=== PATIENT | female | born 1965 | race Caucasian/White ===

== ENCOUNTER 2019-11-12 07:06 | Observation (INO) | payer OTHER ==
[2019-11-11 09:10] LABS: BASOPHILS % (AUTO) 0.9 % (0.0-5.0); EOSINOPHILS % (AUTO) 2.2 % (0.0-8.0); HEMATOCRIT 43.1 % (36-48); LYMPHOCYTES % (AUTO) 27.2 % (21.0-51.0); MEAN CORPUSCULAR HEMOGLOBIN 28.4 pg (27.0-33.0); MEAN CORPUSCULAR HGB CONC 32.7 g/dL (32.0-36.0); MEAN CORPUSCULAR VOLUME 86.9 fL (79-99); MONOCYTES % (AUTO) 5.7 % (3.0-13.0); NEUTROPHILS % (AUTO) 63.6 % (40.0-77.0); PLATELET COUNT (AUTO) 294 K/uL (130-400); RED BLOOD CELL COUNT(AUTO) 4.96 MIL/uL (4.00-5.50); RED CELL DISTRIBUTION WIDTH 13.1 % (11.0-15.5); WHITE BLOOD COUNT (AUTO) 7.8 K/uL (4.8-10.8)
[2019-11-11 09:24] LABS: CREATININE 0.8 mg/dL (0.5-1.5); POTASSIUM 4.2 mmol/L (3.5-5.1)
[2019-11-11 09:27] LABS: INR 0.92 (0.85-1.15); PARTIAL THROMBOPLASTIN TIME 28.8 SEC (26.3-35.5)
[2019-11-11 17:41] VITALS: BP 138/75
[~2019-11-12] VITALS: Ht 167.6 cm; Wt 98.2 kg
[2019-11-12] VITALS (29 sets, daily range): BP systolic 110–170; BP diastolic 60–80
[~2019-11-12 07:06] MED LIST: METH10TA7 PO; PROP60TA20 PO; SERTRALINE PO
[2019-11-12] MEDS ORDERED: LACTATED RINGERS 1000ML 1,000 ML IV ONE (07:44)
[2019-11-12] MEDS ORDERED: GABA600T10 PO (07:56)
[2019-11-12] MEDS ORDERED: LIDOCAINE 1%-EPI 1:100,000 20 ML VIAL IJ ONE (08:44)
[2019-11-12] MEDS ORDERED: STRONG IODINE SOLN 14ML BOTTLE ONE (09:15)
[2019-11-12] MEDS ORDERED: LIDOCAINE PF 2% 5ML ABBOJECT ONE (09:19)
[2019-11-12] MEDS ORDERED: SUCCINYLCHOLINE 200MG/10ML SYR ONE (09:19)
[2019-11-12] MEDS ORDERED: PROPOFOL 10 MG/ML 20ML VIAL IV ONE (09:20)
[2019-11-12] MEDS ORDERED: ESMOLOL HCL 10 MG/ML 10 ML VIAL ONE (09:20)
[2019-11-12] MEDS ORDERED: FENTANYL CITRATE PF 50 MCG/1 ML 2ML VIAL ONE ×2 (09:20→10:03)
[2019-11-12] MEDS ORDERED: MIDAZOLAM HCL 1 MG/ML 2ML VIAL ONE (09:20)
[2019-11-12] MEDS ORDERED: ROCURONIUM 10MG/1ML SYR 10 MG/ML ML ONE (09:20)
[2019-11-12] MEDS ORDERED: CEFAZOLIN SODIUM 1 GM VIAL ONE (09:25)
[2019-11-12] MEDS ORDERED: ONDANSETRON HCL 4 MG/2 ML VIAL ONE ×2 (09:35)
[2019-11-12] MEDS ORDERED: METOPROLOL TARTRATE 1 MG/ML 5ML VIAL IV ONE (09:37)
[2019-11-12] MEDS ORDERED: DEXAMETHASONE SOD PHOSPHATE 10MG/ML 1ML VIAL ONE (10:00)
[2019-11-12] MEDS ORDERED: PHENYLEPHRINE HCL 10 MG/ML 1ML VIAL IV ONE (10:07)
[2019-11-12] MEDS ORDERED: EPHEDRINE SULFATE 50 MG/ML AMPULE ONE (10:17)
[2019-11-12] MEDS ORDERED: HYDRALAZINE HCL 20 MG/ML VIAL ONE (12:04)
[2019-11-12] MEDS ORDERED: ACETAMINOPHEN-CODEINE 300/30MG TAB PO PRN (13:45)
[2019-11-12] MEDS: ACETAMINOPHEN-CODEINE 300/30MG TAB PO PRN ×2 (14:02→18:54)
[2019-11-12] MEDS ORDERED: PHARMACY COMMUNICATION MISC SCH (16:15)
[2019-11-12] MEDS ORDERED: NALOXONE HCL 0.4 MG/1 ML ML IVP PRN (17:00)
[2019-11-12] MEDS ORDERED: MORPHINE-NS 50 MG/50 ML 50 ML IV PRN (17:00)
[2019-11-12] MEDS: DEXTROSE 5 % AND 0.9 % NACL 1,000 ML IV SCH (18:54)
--- NOTE | 2019-11-12 20:00 | NUR ---
RECEIVED BEDSIDE REPORT RECEIVED FROM NURSEALEJANDRA. SHIFT ASSESSMENT DONE, PLEASE REFER TO CHART. STARTED PT ON TOILET ATTENDANT MORPHINE FOR PAIN. KEPT RESTED AND COMFORTABLE IN BED. [id number] ON TOILET ATTENDANT USE. RE-ITERATED FALL PRECAUTIONS. WILL RE-ASSESS PT. Addendum: 11/13/19 at 0251 by LINDEN MAIN RN RN Amended: Links added.
[2019-11-12] MEDS ORDERED: GABAPENTIN 300 MG CAPSULE PO SCH (21:00)
[2019-11-12] MEDS ORDERED: SERTRALINE HCL 50 MG TABLET PO SCH (21:00)
[2019-11-12] MEDS: CALCIUM CARBONATE 500 MG TABLET PO SCH (21:59)
[2019-11-12] MEDS: CEPHALEXIN 500 MG CAPSULE PO SCH (22:00)
[2019-11-12] MEDS: METHIMAZOLE 10 MG TAB PO SCH (22:00)
[2019-11-12] MEDS: PROPRANOLOL HCL 20 MG TAB PO SCH (22:00)
--- NOTE | 2019-11-12 22:00 | NUR ---
MEDS DUE MEDS ADMINISTERED, TOLERATED WELL. NO DISTRESS NOTED. DRESSING TO NECK AREA DRY AND INTACT. ENCOURAGED TO REST AND SLEEP. CALL LIGHT WITHIN REACH. WILL MONITOR PT.
[2019-11-13 01:50] LABS: HEMATOCRIT 41.2 % (36-48); MEAN CORPUSCULAR HEMOGLOBIN 28.8 pg (27.0-33.0); MEAN CORPUSCULAR HGB CONC 33.3 g/dL (32.0-36.0); MEAN CORPUSCULAR VOLUME 86.7 fL (79-99); RED BLOOD CELL COUNT(AUTO) 4.75 MIL/uL (4.00-5.50); RED CELL DISTRIBUTION WIDTH 13.3 % (11.0-15.5); WHITE BLOOD COUNT (AUTO) 16.5 K/uL (4.8-10.8)
--- NOTE | 2019-11-13 02:00 | NUR ---
ROUNDS PT RESTING WELL, NO DISTRESS NOTED. KEPT UNDISTURBED FOR NOW. WILL CONTINUE TO MONITOR. CALL LIGHT WITHIN REACH.
[2019-11-13] MEDS: DEXTROSE 5 % AND 0.9 % NACL 1,000 ML IV SCH ×2 (03:58→06:10)
[2019-11-13 04:20] VITALS: BP 114/73
--- NOTE | 2019-11-13 05:41 | NUR ---
ROUNDS PT RESTING WELL. DENIES ANY CONCERNS AT THIS TIME. NO NOTED BLEEDING FROM SX SITE UPON INSPECTION. FOR MORE CARE.
[2019-11-13 07:54] VITALS: BP 115/62
[2019-11-13] MEDS: CEPHALEXIN 500 MG CAPSULE PO SCH (08:21)
[2019-11-13] MEDS: PROPRANOLOL HCL 20 MG TAB PO SCH (08:22)
[2019-11-13] MEDS: CALCIUM CARBONATE 500 MG TABLET PO SCH (08:28)
[2019-11-13] MEDS: METHIMAZOLE 10 MG TAB PO SCH (08:28)
--- NOTE | 2019-11-13 10:01 | NUR ---
DR MEREDITH PT. SEEN BY DR. MEREDITH AT BEDSIDE, DRAINS REMOVED BY DR. MEREDITH. DRESSING CLEANED AND CHANGED.
[2019-11-13 11:37] VITALS: BP 138/62
--- NOTE | 2019-11-13 11:46 | NUR ---
SUB ARC OPERATOR PACA REMOVED WASTED 43.7 WITH SAMUEL YOUNG RN
--- NOTE | 2019-11-13 12:18 | NUR ---
D/C PT LEFT VIA WHEELCHAIR IN PVT CAR, A/A X . DRESSING IS CLEAN AND DRY/ VS STABLE NO COMPLICATION WITH D/C . F/U APPT IS SCHEDULE WITH DR. MEREDITH OFFICE, AND RX SCRIPT GIVEN TO PATENT. EXPLAINED TO PATIENT TO CHANGE DRESSING DAILY.
== END 2019-11-13 12:10 | disposition home or self-care (01) ==
LOC: DAH 07:06 → 3BH 07:07
PROVIDERS: ADMIT Otolaryngology Plastic Surgery within the Head & Neck; ATTEND Otolaryngology Plastic Surgery within the Head & Neck
DX: E05.00 Thyrotoxicosis with diffuse goiter without thyrotoxic crisis or storm (principal); Z90.49 Acquired absence of other specified parts of digestive tract; Z90.710 Acquired absence of both cervix and uterus
CPT/HCPCS: 36415 ×3; 60240; 80048; 82310 ×3; 85025; 85027; 85610; 85730; 96365; 96366 ×2; A4215; A4221; A4222; A4223; A4452; A4649; A4663; A4930; A6260; G0378 ×8; J0330; J0360; J0690; J1100; J2001; J2250; J2270; J2370; J2405 ×2; J2704; J3010 ×2; J3490 ×4; J7030; J7042 ×2; J7120 ×2